=== PATIENT | male | born 1950 | race Caucasian/White ===

== ENCOUNTER 2020-07-18 11:01 | Emergency (ER) | payer MEDICARE, BC ==
[~2020-07-18] VITALS: Ht 180.3 cm; Wt 65.9 kg
[2020-07-18 11:05] VITALS: BP 132/87; Ht 180.3 cm; Wt 65.9 kg
[2020-07-18 11:39] LABS: BASOPHILS 0.5 % (0-2); EOSINOPHILS 1.4 % (0-7); HEMATOCRIT 46.8 % (42.0-54.0); HEMOGLOBIN 15.8 g/dL (13.5-17.5); LYMPHOCYTE ABS# 1.39 10x3/uL (1.32-3.57); LYMPHOCYTES 32.9 % (15-50); MCH 29.5 pg (26.0-34.0); MCHC 33.8 g/dL (31.0-37.0); MCV 87.5 fL (80.0-100.0); MEAN PLATELET VOLUME 10.5 fL (7.4-10.4); MONOCYTES 12.1 % (2-11); NEUTROPHIL ABS# 2.24 10x3/uL (1.78-5.38); NEUTROPHILS 53.1 % (40-80); PLATELET COUNT 251 10x3/uL (130-400); RBC 5.35 10x6/uL (4.20-6.10); RDW 12.6 % (11.5-14.5); WBC 4.2 10x3/uL (4.8-10.8)
[2020-07-18 11:49] LABS: APTT 26.8 SECONDS (22.8-39.4); CALC OSMOLALITY 282 mosm/kg (275-300); CALCIUM 8.9 mg/dL (8.5-10.1); CARBON DIOXIDE 29.1 mmol/L (21.0-32.0); CHLORIDE - SERUM 106 mmol/L (98-107); GLUCOSE 96 mg/dL (74-106); INR 1.17 (0.85-1.17); POTASSIUM - SERUM 4.1 mmol/L (3.5-5.1); PROTIME 13.8 SECONDS (11.6-15.0); SODIUM 141 mmol/L (136-145); UREA NITROGEN 19 mg/dL (7-18); eGFR NON AFRICAN AMERICAN 79 mL/min (90-120)
[2020-07-18 11:53] LABS: ALBUMIN 3.8 g/dL (3.4-5.0); ALKALINE PHOSPHATASE 76 U/L (30-120); ALT (SGPT) 21 U/L (10-68); BILIRUBIN - TOTAL 0.86 mg/dL (0.2-1.3); PROTEIN - SERUM 6.9 g/dL (6.4-8.2)
== END 2020-07-18 13:29 | disposition other institution (70) ==
LOC: D.ER 11:01
PROVIDERS: Family Medicine
DX: S01.21XA Laceration without foreign body of nose, initial encounter (principal); S04.50XA Injury of facial nerve, unspecified side, initial encounter; W45.8XXA Other foreign body or object entering through skin, initial encounter; Y93.9 Activity, unspecified; Y92.9 Unspecified place or not applicable